=== PATIENT | female | born 1965 | race Caucasian/White ===

== ENCOUNTER 2016-03-10 21:40 | Observation (INO) | payer MEDICAID ==
[~2016-03-10] VITALS: Ht 162.6 cm; Wt 52.1 kg
[2016-03-10] MEDS ORDERED: ASPIRIN 81 MG CHEW TAB ONE (22:15)
[2016-03-10] MEDS ORDERED: NITROGLYCERIN SL 0.4 MG TAB SL ONE (22:34)
[2016-03-10] MEDS ORDERED: ACETAMINOPHEN 325 MG TAB ONE (22:34)
[2016-03-11] MEDS ORDERED: SODIUM CHLORIDE 0.9% 1,000 ML IV SCH (01:45)
[2016-03-11] MEDS ORDERED: DOCUSATE SOD 100 MG CAP PO PRN (01:45)
[2016-03-11] MEDS ORDERED: SALINE FLUSH 10 ML FLUSH PRN (01:45)
[2016-03-11] MEDS ORDERED: TEMAZEPAM 7.5 MG CAP PO PRN (01:45)
[2016-03-11] MEDS ORDERED: TRAMADOL 50 MG TAB PO PRN (01:45)
[2016-03-11] MEDS ORDERED: SODIUM CHLORIDE 0.9% FLUSH BAG 500 ML IV PRN (01:45)
[2016-03-11] MEDS ORDERED: NITROGLYCERIN 50 MG/250 ML IV PRN (01:45)
[2016-03-11] MEDS ORDERED: TEMAZEPAM 15 MG CAP PO PRN (01:45)
[2016-03-11] MEDS ORDERED: LORAZEPAM 0.5 MG TAB PO PRN (01:45)
[2016-03-11] MEDS ORDERED: MORPHINE 2 MG/ML SYR IV PRN (01:45)
[2016-03-11] MEDS ORDERED: ONDANSETRON 4 MG VIAL IV PRN (01:45)
[2016-03-11] MEDS ORDERED: NITROGLYCERIN SL 0.4 MG TAB SL PRN (01:45)
[2016-03-11] MEDS ORDERED: ACETAMINOPHEN 325 MG TAB PO PRN ×2 (01:45→08:00)
[2016-03-11 02:26] VITALS: BP_SYST 142; BP_SYST 146; RESP 16; TEMP 97.8
[2016-03-11 02:27] VITALS: Ht 162.6 cm; Wt 52.1 kg
[2016-03-11 06:20] VITALS: RESP 16
[2016-03-11 07:10] VITALS: BP_SYST 108; RESP 16; TEMP 98.1
[2016-03-11] MEDS ORDERED: SUMATRIPTAN SUC 50 MG TAB PO PRN (08:00)
[2016-03-11] MEDS ORDERED: SALINE FLUSH 10 ML FLUSH SCH (08:00)
[2016-03-11] MEDS ORDERED: ASPIRIN EC 81 MG TAB PO SCH (08:00)
[2016-03-11] MEDS ORDERED: LEVOTHYROXINE 0.075 MG TAB PO SCH (08:04)
[2016-03-11] MEDS ORDERED: PANTOPRAZOLE 40 MG TAB PO SCH (08:09)
[2016-03-11] MEDS ORDERED: COLESTIPOL HCL 1 GM TAB PO PRN (08:10)
[2016-03-11] MEDS ORDERED: LORATADINE 10 MG TAB PO PRN (08:10)
[2016-03-11] MEDS ORDERED: FERROUS SULF 325 MG TAB PO SCH (09:00)
[2016-03-11] MEDS ORDERED: GABAPENTIN 400 MG CAP PO SCH ×2 (09:00→21:00)
[2016-03-11] MEDS ORDERED: [UNRECOGNIZED DRUG - OTHER] PO SCH (09:00)
[2016-03-11] MEDS ORDERED: MESALAMINE PO SCH (09:00)
[2016-03-11] MEDS ORDERED: KCL CR 20 MEQ TAB PO SCH (09:00)
[2016-03-11] MEDS ORDERED: ACYCLOVIR 200 MG CAP PO SCH (09:00)
[2016-03-11 14:47] VITALS: BP_SYST 112; RESP 16; TEMP 97.9
[2016-03-11 15:59] VITALS: BP_SYST 112; RESP 16; TEMP 97.9
[2016-03-11 19:10] VITALS: BP_SYST 140; RESP 16; TEMP 98.2
[2016-03-11] MEDS ORDERED: clonazePAM 0.5 MG TAB PO SCH (21:00)
== END 2016-03-11 15:54 | disposition home or self-care (01) ==
LOC: ER 21:40 → ENPENDDIS 21:41 → EMR 21:41 → 5THW 03-11 02:13
PROVIDERS: ADMIT Internal Medicine Cardiovascular Disease; ATTEND Internal Medicine Cardiovascular Disease
DX: R07.9 Chest pain, unspecified (principal); K50.90 Crohn's disease, unspecified, without complications; E03.9 Hypothyroidism, unspecified; G62.9 Polyneuropathy, unspecified
CPT/HCPCS: 36415; 71010; 78452; 80053; 82550; 82553; 83735; 84484; 85025; 85610; 85730; 93005; 93017; 93306